=== PATIENT | male | born 1960 | race Caucasian/White ===

== ENCOUNTER 2017-07-28 07:02 | Day surgery (SDC) | payer OTHER ==
[~2017-07-28] VITALS: Ht 180.3 cm; Wt 119.5 kg
[~2017-07-28 07:02] MED LIST: APIX2.5T PO; ATEN-100 PO; DIGO50SO PO; TEMA7.5C9 PO; XANA0.5T PO
[2017-07-28] MEDS ORDERED: IOHEXOL 350 MG/ML 50 ML BTL (for Cath Lab) OTHER ONE (07:03)
[2017-07-28] MEDS ORDERED: IOHEXOL 350 MG/ML 100 ML BTL (for Cath Lab) OTHER ONE (07:03)
[2017-07-28 07:43] VITALS: BP 157/117; PULSE 83; RESP 18; TEMP 98.5; O2SAT 99
[2017-07-28] MEDS ORDERED: MULTTAB67 PO (07:49)
[2017-07-28] MEDS ORDERED: TAZT180C PO (07:49)
[2017-07-28] MEDS ORDERED: FURO1TAB62 PO (07:49)
[2017-07-28] MEDS ORDERED: GUAI1TAB18 (07:49)
[2017-07-28] MEDS ORDERED: TRAM50TA PO (07:49)
[2017-07-28] MEDS ORDERED: TEMA30CA PO (07:49)
[2017-07-28] MEDS ORDERED: ALPR1TAB6 PO (07:49)
[2017-07-28] MEDS ORDERED: DIGO0.25 PO (07:49)
[2017-07-28] MEDS ORDERED: ALBU6.7H INH (07:49)
[2017-07-28] MEDS ORDERED: TAMS0.4C4 PO (07:49)
[2017-07-28] MEDS ORDERED: APIX5TAB PO (07:49)
[2017-07-28] MEDS ORDERED: POTA-163 PO (07:49)
[2017-07-28] MEDS ORDERED: ADVA100A INH (07:49)
[2017-07-28 07:51] LABS: AUTOMATED NEUTROPHIL # 5.5 TH/MM3 (1.8-7.7); BASOPHIL % 0.5 % (0.0-2.0); EOSINOPHIL # 0.1 TH/MM3 (0-0.4); EOSINOPHIL % 1.4 % (0.0-4.0); HEMATOCRIT 46.2 % (39.0-51.0); HEMOGLOBIN 14.8 GM/DL (13.0-17.0); LYMPHOCYTE # 2.3 TH/MM3 (1.0-4.8); MEAN CELL VOLUME 77.5 FL (80.0-100.0); MEAN CORPUSCULAR HEMOGLOBIN 24.7 PG (27.0-34.0); MEAN CORPUSCULAR HGB CONC 31.9 % (32.0-36.0); MEAN PLATELET VOLUME 6.9 FL (7.0-11.0); MONO % 9.6 % (0.0-8.0); MONOCYTE # 0.8 TH/MM3 (0-0.9); NEUT % 62.5 % (16.0-70.0); PLATELET COUNT 229 TH/MM3 (150-450); RED BLOOD COUNT 5.97 MIL/MM3 (4.50-5.90); RED CELL DISTRIBUTION WIDTH 24.9 % (11.6-17.2); WHITE BLOOD COUNT 8.7 TH/MM3 (4.0-11.0)
[2017-07-28 08:06] LABS: INTERNATIONAL NORMALIZED RATIO 1.1 RATIO; PROTHROMBIN TIME - PATIENT 10.7 SEC (9.8-11.6)
[2017-07-28] MEDS ORDERED: NITROGLYCERIN INJ 5 ML ONE (08:25)
[2017-07-28] MEDS ORDERED: HEPARIN SODIUM - IV 10,000 UNITS/10 ML VIAL ONE ×2 (08:25→09:05)
[2017-07-28] MEDS ORDERED: VERAPAMIL HCL 5 MG/2 ML VIAL ONE (08:25)
[2017-07-28] MEDS ORDERED: MIDAZOLAM HCL 2 MG/2 ML VIAL ONE (08:32)
[2017-07-28 08:46] LABS: CREATININE 0.69 MG/DL (0.60-1.30)
[2017-07-28 08:47] LABS: BICARBONATE 26.2 MEQ/L (21.0-32.0); CALCIUM 8.4 MG/DL (8.5-10.1)
[2017-07-28] MEDS ORDERED: NS 1000P @30 MLS/HR (KVO) IV SCH (09:00)
[2017-07-28] MEDS ORDERED: CLOPIDOGREL 300 MG TAB ONE (09:07)
--- NOTE | 2017-07-28 09:54 | CATHPROC ---
[facility] HIS Report Study Information Study Number Admission Scheduled Start Study Start [id number] Jul 28 2017 7:02AM 07/28/2017 Jul 28 2017 8:17AM [place] [facility] Cardiac Catheterization Admit Source Facility Department Other [facility] - Conference Planning Manager Physician and Clinical Staff Initial Cordell Olea Furniture RestorerGamaliel Hayden,SUKHWINDER Furniture Restorersudhakar Mayorga RN, Armando Duval cathlab, cathlab Recorder Minh Stephens RCIS(BS) Scrub Bianca Jason,INSPECTOR MACHINE CUT GLASS TECH2 Procedures Performed Procedure Location (Site) Vessel Name Coronary Angiograms LCA Left Coronary Coronary Angiograms RCA Right Coronary Drug Eluting Inflatio LAD Prox Left Coronary L Heart Cath PTCA LAD Prox Left Coronary PTCA ADD ON'S Wire insertion Radial (right) Radial Art. Equipment Time Carpenter Apprentice Description Size Mfg Part Number Used/Scraped WIRE, BALANCE MIDDLEWEIGHT [id number] 09:06 [employer] 190CM Used 190CM *[id number] TRANSDUCER, TRUWAVE [id number] 08:21 ROMAN MANCILLA * Used W/STOCKCOCK *[id number] 08:21 [employer] PACK, CCL CUSTOM * Used *[id number] 08:21 [employer] SUPPORT, ARTERIAL ADULT 35068 *[id number] Used [id number] 09:15 [employer] BALLOON, 2.5 X 10MM EUPHORA 10MM Used *[id number] BALLOON, 3.75 X 8MM NC [id number] 09:23 [employer] 8MM Used EUPHORA *[id number] BALLOON, 4.0 X 8MM NC [id number] 09:28 [employer] 8MM Used EUPHORA *[id number] 08:52 [employer] JL 3.5 DXTERITY CATHETER FR 5 Used *[id number] 08:59 [employer] JL 4.0 DXTERITY CATHETER FR 5 Used *[id number] 08:45 [employer]ONIC JR 4.0 DXTERITY CATHETER FR 5 [id number] 09:19 [employer] STENT, 3.5 12MM ALICIA 3.5 12MM Used *[id number] 09:05 [employer]/AVE EBU 3.5 Z2 GUIDE CATHETER FR 6 Used *[id number] 09:05 YuMe 30 MARCEL INDEFLATOR Used *[id number] BAND, RADIAL COMPRESSION TR [id number] 09:43 YuMe 29CM Used LARGE 29 *[id number] 08:21 [employer] WIRE, EXCHANGE 260CM 3MMJ 260CM Used *[id number] 08:21 NAMIC MANIFOLD, 4 PORT * Used *[id number] 08:21 [employer]COM[employer] OMNIPAQUE, 350 MG, 150ML 150ML [id number] Used [id number] 08:21 [employer],WARM AIR CCL * Used *[id number] SHEATH, FR6 TRANSRADIAL [id number] 08:21 [employer] FR 6 Used SLENDER 10CM *[id number] Equipment Model, Serial, Lot Number and Expiration Data Description Model Number Serial Number Lot Number Expiration Date BALLOON, 3.75 X 8MM NC [id number] 04-23-2018 EUPHORA BALLOON, 4.0 X 8MM NC EUPHORA [id number] 02-26-2019 STENT, 3.5 12MM ALICIA [id number] 03-14-2019 History: Current Medications Medication Dosage/Unit Route Frequency Last Date/Time Taken ELIQUIS History: Allergies Allergy Reaction No Known Allergies warfarin History: Risk Factors Family History of Hypertension Dyslipidemia Previous [place] Previous Heart Failure Premature CAD Yes No No No No Prior Valve Prior PCI Prior CABG Surgery No No No Cerebrovascular Peripheral Artery Chronic Lung On Dialysis Diabetes Disease Disease Disease No No No Yes No History: Symptoms/Diagnosis Selection Items Chest pain History: Stress Tests Stress or Imaging Studies Performed Yes Standard Exercise Stress Test No Stress Echo No Stress Test SPECT Stress Test SPECT Result Stress Test SPECT Ischemia Risk/Extent Yes Positive Low Stress Test CMR No Cardiac CTA Coronary Calcium Score No No History: Other Disease Selection Items HTN History: Other Current Smoker Method Packs a Day Years Used Pack Years Yes Cigarettes 1 20 20 Labs Hgb (g/dl) Hct (%) WBC (l/cumm) Platelets (thousands) 11.60-17.00 35.00-51.00 4.00-11.00 150.00-450.00 14.8 46.2 8.7 229 Creatinine (mg/dl) 0.50-1.30 0.6 Na (meq/l) K (meq/l) 136.00-145.00 3.50-5.10 140 3.8 INR (PTT:PT) 0.90-1.10 1.1 CPK-MB (ng/ML) 0.50-3.60 Not Drawn Medication Medication Total Dose (Bolus/Oral) Medication Total Dosage/Unit 1% XYLOCAINE 3 mL FENTANYL 50 mcg HEPARIN 8400 units PLAVIX 600 mg RADIAL COCKTAIL 5 mL (Bolus) VERSED 1 mg Medications (Bolus/Oral) Medication Time Given Dosage/Unit Administered By Reason FENTANYL 07/28/2017 8:41:48 AM 50 mcg Armando Mayorga RN 50 mcg FENTANYL given in lab by Armando Mayorga RN in Left Antecubital via Peripheral IV. Ordered by Cordell Bonilla 1% XYLOCAINE 07/28/2017 8:42:01 AM 3 mL Cordell Rivera 3 mL 1% XYLOCAINE given in lab by Cordell Rivera in Right Radial via Subcutaneous. Ntg 200mcg Verapamil 2.5mg Heparin RADIAL COCKTAIL 07/28/2017 8:43:54 AM 5 mL (Bolus) Cordell Rivera 3000U 5 mL (Bolus) RADIAL COCKTAIL given in lab by Cordell Rivera via Radial. Using [Solution Name]. R aggie: Ntg 200mcg Verapamil 2.5mg Heparin 4800U VERSED 07/28/2017 8:49:00 AM 0.5 mg Armando Mayorga RN 0.5 mg VERSED given in lab by Armando Mayorga RN in Left Antecubital via Peripheral IV. Ordered by Cordell Morrow VERSED 07/28/2017 9:03:24 AM 0.5 mg Armando Mayorga RN 0.5 mg VERSED given in lab by Armando Mayorga RN in Left Antecubital via Peripheral IV. Ordered by Cordell Morrow HEPARIN 07/28/2017 9:06:48 AM 8400 units Armando Mayorga RN 8400 units HEPARIN given in lab by Armando Mayorga RN via Peripheral IV. Ordered by Cordell Rivera PLAVIX 07/28/2017 9:44:10 AM 600 mg Armando Mayorga RN 600 mg PLAVIX given in lab by Armando Mayorga RN via Oral. Ordered by Cordell Rivera Medication (Drip) Medication Time Given Dosage/Unit Concentration/Unit Diluent (ml) Solutio n IV Solutions 07/28/2017 8:17:28 AM 0 mL (IV) 500 NaCl .9 Patient arrived on IV Solutions given by cathlab, cathlab in Left Antecubital via Peripheral IV. Pump /Drip Flow = 20 ml/hr using NaCl .9. Ordered by Cordell Rivera Initial Case Assessment Cardiovascular HR Rhythm NIBP Chest Pain 74 nsr 136/87 0 Edema Present Skin color Skin None Normal Warm Dry Circulatory - Right Pulses Dorsalis Pedis Femoral Radial 2 2 2 Scale (0,1,2,3,4,d) Circulatory - Left Pulses Dorsalis Pedis Femoral Radial 2 2 Scale (0,1,2,3,4,d) Neurological State Oriented to time-place- Alert Moves all extremities person Respiration - General Respiration Rate SpO2 (%) (B/min) 15 96 Final Case Assessment Cardiovascular HR Rhythm NIBP Chest Pain 73 nsr 155/103 0 Edema Present Skin color Skin None Normal Warm Dry Circulatory - Right Pulses Dorsalis Pedis Femoral Radial 2 2 2 Scale (0,1,2,3,4,d) Circulatory - Left Pulses Dorsalis Pedis Femoral Radial 2 2 Scale (0,1,2,3,4,d) Neurological State Oriented to time-place- Alert Moves all extremities person Respiration - General Respiration Rate SpO2 (%) (B/min) 15 96 Chronological Log Time Study Chronological Log 8:17:17 Patient arrived via Bed. Chemistry labs pending. MD aware. 8:17:18 Patient Name, D.O.B, / Armband Verified By R.N. 8:17:19 Consent signed by the physician and the patient and verified by the Conference Planning Manager staff. 8:17:19 Pre-op and post- op instructions given; patient acknowledges understanding of instructions. 8:17:20 Verbal Stimulation=2 Physical Stimulation=2 Airway=2 Respiration=2 TOTAL=8. (0=absent, 1=li mited, 2=present) 8:17:20 Presedation assessment performed by Conference Planning Manager RN. 8:17:21 Allens test performed on the right radial and ulnar artery. 8:17:22 Immediate Presedation assesment performed by physician. 8:17:23 Patient has been NPO for More than 6Hrs. 8:17:24 Skin Breakdown- none per patient 8:17:25 Patient Warmer Placed on the Table. 8:17:26 Mert Prominences Protected 8:17:27 A # 20 IV was noted in the Antecubital (left). Grade = 0 Patient arrived on IV Solutions given by cathlabmarisa in Left Antecubital via Peripheral IV . Pump/Drip Flow = 20 8:17:28 ml/hr using NaCl .9. Ordered by Cordell Rivera 8:17:28 History and physical on the chart or being dictated. Vitals capture started with the following parameters, Patient=Adult, Interval=5 min, Initial Pr kitpoh=960 mmHg, 8:27:27 Deflation Rate=5 mmHg, Cuff placed on Left Arm 8:28:34 HR=69 bpm, SZDB=654/87 mmhg, SpO2=95.0 %, Resp=12 B/min, Pain=0, Will=10, Stack=2 Assessment: Initial Case, HR=74 BPM, Rhythm=nsr, HIKM=691/87 mmhg, Chest Pain=0, Edema=None, Col or=Normal, Skin = Warm, Dry Right Pulses: Radames Ped=2, Femoral=2, Radial=2 8:28:50 Left Pulses: Radames Ped=2, Femoral=2 Neurological: State=Alert, Ox3, STUART Respiration: Resp=15 B/min, SpO2=96 % 8:29:18 Right Radial and groin(s) prepped with 2% chlorhexidine, and draped after a 3 min. waiting t escobar. 8:29:23 MD arrived. 8:32:55 Contrast Scanned 8:32:55 Immediate Presedation assesment performed by physician. 8:32:58 HR=82 bpm, HTVT=840/86 mmhg, SpO2=94.0 %, Resp=15 B/min, Pain=0, Will=10, Stack=2 8:34:52 Reference ECG taken 8:35:41 Pressure channel 1 zeroed. Time Out. Correct patient, correct procedure, correct physician, power injector not loaded with contrast with surgical 8:37:37 team present. Time Out Concurred by MD and individual staff in procedure. 8:38:01 HR=74 bpm, QBPA=430/89 mmhg, SpO2=92.0 %, Resp=16 B/min, Pain=0, Will=10, Stack=2 8:41:44 Case Start 8:41:48 50 mcg FENTANYL given in lab by Armando Mayorga RN in Left Antecubital via Peripheral IV. Order ed by Rivera, Vincent G. 8:42:01 3 mL 1% XYLOCAINE given in lab by Cordell Rivera in Right Radial via Subcutaneous. 8:43:00 HR=68 bpm, ARWS=055/88 mmhg, SpO2=96.0 %, Resp=17 B/min, Pain=0, Will=10, Stack=2 8:43:37 Access site was Right Radial Artery. A SHEATH, FR6 TRANSRADIAL SLENDER 10CM FR 6 was advanced into the Radial (right) using the Jad patel 8:43:44 technique. 5 mL (Bolus) RADIAL COCKTAIL given in lab by Cordell Rivera via Radial. Using [Solution Nam e]. Reason: Ntg 8:43:54 200mcg Verapamil 2.5mg Heparin 4800U A JR 4.0 DXTERITY CATHETER FR 5 was advanced over a wire. OMNIPAQUE, 350 MG, 150ML 150ML was use d for 8:44:25 injections. Recorded Pressure: Ao, HR=68, Condition=Condition 1 8:47:53 (Aorta) Ao 98/64/80 8:48:01 HR=74 bpm, VUAL=601/79 mmhg, SpO2=93.0 %, Resp=12 B/min 8:49:00 0.5 mg VERSED given in lab by Armando Mayorga RN in Left Antecubital via Peripheral IV. Ordered by Cordell Rivera. 8:49:49 The RCA was injected and visualized at various angles. OMNIPAQUE, 350 MG, 150ML 150ML used. Recorded Pressure: LV, HR=76, Condition=Condition 1 8:52:31 (Left Ventricle) LV 126/4/12 Recorded Pressure: LV, Ao, HR=73, Condition=Condition 1 8:52:38 (Left Ventricle) LV 133/4/12, (Aorta) Ao 124/69/92 After removing the current catheter a JL 3.5 DXTERITY CATHETER FR 5 was advanced over a WIRE, EX CHANGE 260CM 8:52:46 3MMJ 260CM. 8:53:02 HR=99 bpm, JCCO=592/82 mmhg, SpO2=95 %, Resp=14 B/min, Pain=0, Will=10, Stack=2 8:58:01 HR=74 bpm, VNHE=300/92 mmhg, SpO2=95 %, Resp=11 B/min, Pain=0, Will=10, Stack=2 After removing the current catheter a JL 4.0 DXTERITY CATHETER FR 5 was advanced over a WIRE, EX CHANGE 260CM 8:58:28 3MMJ 260CM. 9:00:02 The LCA was injected and visualized at various angles. OMNIPAQUE, 350 MG, 150ML 150ML used. 9:03:03 HR=80 bpm, AACV=487/97 mmhg, SpO2=91.0 %, Resp=15 B/min, Pain=0, Will=10, Stack=2 9:03:24 0.5 mg VERSED given in lab by Armando Mayorga RN in Left Antecubital via Peripheral IV. Ordered by Cordell Rivera 9:04:28 contrast and 30 MARCEL INDEFLATOR added. After removing the current catheter a EBU 3.5 Z2 GUIDE CATHETER FR 6 was advanced over a WIRE, E XCHANGE 9:05:01 260CM 3MMJ 260CM. 9:06:48 8400 units HEPARIN given in lab by Armando Mayorga RN via Peripheral IV. Ordered by Lamberto Rivera 9:08:00 HR=82 bpm, FURJ=833/92 mmhg, SpO2=93.0 %, Resp=10 B/min, Pain=0, Will=10, Stack=2 9:12:36 A WIRE, BALANCE MIDDLEWEIGHT 190CM 190CM was inserted via Radial (right). 9:12:42 Interventional wire has crossed the lesion 9:13:03 HR=79 bpm, YRDW=967/93 mmhg, SpO2=92.0 %, Resp=16 B/min, Pain=0, Will=10, Stack=2 A BALLOON, 2.5 X 10MM EUPHORA 10MM was inserted over WIRE, BALANCE MIDDLEWEIGHT 190CM 190CM via the 9:15:09 LAD Prox. 9:17:02 Activated Clotting Time Drawn A BALLOON, 2.5 X 10MM EUPHORA 10MM over a WIRE, BALANCE MIDDLEWEIGHT 190CM 190CM in the LAD Prox was 9:17:02 inflated using a 30 MARCEL INDEFLATOR at 8 marcel for 25 sec. 9:18:00 Balloon Removed. 9:18:06 HR=79 bpm, TURT=198/91 mmhg, SpO2=93.0 %, Resp=15 B/min, Pain=0, Will=10, Stack=2 A STENT, 3.5 12MM ALICIA 3.5 12MM was advanced through a EBU 3.5 Z2 GUIDE CATHETER FR 6 over a WIR E, 9:18:10 BALANCE MIDDLEWEIGHT 190CM 190CM. 9:20:23 ACT (Normal Range 90-180) = 291 A STENT, 3.5 12MM ALICIA 3.5 12MM was deployed using a 30 MARCEL INDEFLATOR at 14 atmospheres for 30 seconds in 9:21:00 the LAD Prox. 9:21:58 Delivery device removed A BALLOON, 3.75 X 8MM NC EUPHORA 8MM was inserted over WIRE, BALANCE MIDDLEWEIGHT 190CM 190CM vi a the 9:22:17 LAD Prox. 9:23:07 HR=77 bpm, PCNB=962/106 mmhg, SpO2=93.0 %, Resp=14 B/min, Pain=0, Will=10, Stack=2 A BALLOON, 3.75 X 8MM NC EUPHORA 8MM over a WIRE, BALANCE MIDDLEWEIGHT 190CM 190CM in the LAD Pr ox 9:24:43 was inflated using a 30 MARCEL INDEFLATOR at 22 marcel for 25 sec. A BALLOON, 3.75 X 8MM NC EUPHORA 8MM over a WIRE, BALANCE MIDDLEWEIGHT 190CM 190CM in the LAD Pr ox 9:26:06 was inflated using a 30 MARCEL INDEFLATOR at 22 marcel for 25 sec. A BALLOON, 3.75 X 8MM NC EUPHORA 8MM over a WIRE, BALANCE MIDDLEWEIGHT 190CM 190CM in the LAD Pr ox 9:26:20 was inflated using a 30 MARCEL INDEFLATOR at 22 marcel for 20 sec. 9::48 Balloon Removed. 9:28:06 HR=70 bpm, ESOC=345/99 mmhg, SpO2=93.0 %, Resp=10 B/min, Pain=0, Will=10, Stack=2 A BALLOON, 4.0 X 8MM NC EUPHORA 8MM was inserted over WIRE, BALANCE MIDDLEWEIGHT 190CM 190CM via the 9:28:16 LAD Prox. A BALLOON, 4.0 X 8MM NC EUPHORA 8MM over a WIRE, BALANCE MIDDLEWEIGHT 190CM 190CM in the LAD Pro x was 9:29:36 inflated using a 30 MARCEL INDEFLATOR at 18 marcel for 15 sec. 9:30:47 Balloon Removed. 9:33:07 HR=87 bpm, CYJN=854/102 mmhg, SpO2=91.0 %, Resp=15 B/min, Pain=0, Will=10, Stack=2 A BALLOON, 4.0 X 8MM NC EUPHORA 8MM was inserted over WIRE, BALANCE MIDDLEWEIGHT 190CM 190CM via the 9:36:01 LAD Prox. 9:38:08 HR=79 bpm, LEXD=298/105 mmhg, SpO2=93.0 %, Resp=16 B/min, Pain=0, Will=10, Stack=2 A BALLOON, 4.0 X 8MM NC EUPHORA 8MM over a WIRE, BALANCE MIDDLEWEIGHT 190CM 190CM in the LAD Pro x was 9:38:29 inflated using a 30 MARCEL INDEFLATOR at 18 marcel for 15 sec. A BALLOON, 4.0 X 8MM NC EUPHORA 8MM over a WIRE, BALANCE MIDDLEWEIGHT 190CM 190CM in the LAD Pro x was 9:39:06 inflated using a 30 MARCEL INDEFLATOR at 20 marcel for 15 sec. 9:40:39 Balloon Removed. 9:41:00 Wire removed 9:42:22 Catheter was removed Radial Compression Device Used. 9 mLs of air placed in BAND, RADIAL COMPRESSION TR LARGE 29 29CM . Affected 9:42:26 hand 95 % O2 saturation. 9:43:07 HR=77 bpm, GVKY=046/103 mmhg, SpO2=96.0 %, Resp=12 B/min, Pain=0, Will=10, Stack=2 9:43:37 Case End Assessment: Final Case, HR=73 BPM, Rhythm=nsr, CXFM=352/103 mmhg, Chest Pain=0, Edema=None, [place]=Normal, Skin = Warm, Dry Right Pulses: Radames Ped=2, Femoral=2, Radial=2 9:43:40 Left Pulses: Radames Ped=2, Femoral=2 Neurological: State=Alert, Ox3, STUART Respiration: Resp=15 B/min, SpO2=96 % 9:43:53 Catheter(s) removed without difficulty 9:43:54 Sterile dressing applied to site 9:43:55 No case complications noted. 9:43:56 Cine recording checked. 9:43:57 Bedside Report will be given. 9:43:58 Implantable Device card placed in patient's chart. 9:43:59 Contrast Scanned 9:44:00 Verbal Stimulation=2 Physical Stimulation=2 Airway=2 Respiration=2 TOTAL=8. (0=absent, 1=l imited, 2=present) 9:44:06 A Left Heart Cath was performed. 9:44:10 600 mg PLAVIX given in lab by Armando Mayorga RN via Oral. Ordered by Cordell Rivera 9:47:38 Vitals capture stopped. 9:47:54 Patient moved to [facility] End Study - Contrast Media Used In Study Contrast Total Opened (mL) Total Used (mL) Total Wasted (mL) Omnipaque 150 150 0 End Study - Maximum Contrast Load Max Contrast Load (mL) 995.8 End Study - Radiation Exposure Fluoro Time (minutes) 15.3 End Study - Patient Disposition Complications Transferred To Interventional Outcome No Conference Planning Manager Holding successful
[2017-07-28] MEDS ORDERED: oxyCODONE/ACETAMINOPHEN 10 MG/325 MG TAB PO PRN (10:15)
[2017-07-28] MEDS ORDERED: oxyCODONE/ACETAMINOPHEN 5 MG/325 MG TAB PO PRN (10:15)
[2017-07-28] MEDS ORDERED: MISC INFORMATION XX ONE (10:15)
[2017-07-28] MEDS ORDERED: SODIUM CHLOR 0.9% 1000 ML INJ 1,000 ML IV SCH (10:15)
[2017-07-28] MEDS ORDERED: ACETAMINOPHEN 325 MG TAB PO PRN (10:15)
[2017-07-28] MEDS ORDERED: PLAV75TA29 PO (10:18)
--- NOTE | 2017-07-28 13:13 | MA ---
cc: CORDELL OSBORNE DO DATE 07/28/2017 PROCEDURE Left heart catheterization, coronary angiogram, moderate sedation 60 minutes, andry drug-eluting stent (3.5 x 12) to the proximal LAD. PREPROCEDURE DIAGNOSIS Unstable angina, Van Zandt anginal score 3 (patient currently on calcium channel rudy for atrial fibrillation, unable to tolerate beta rudy secondary to erectile dysfunction). POSTPROCEDURE DIAGNOSIS 1. Unstable angina status post andry drug-eluting stent (3.5 x 12) to the proximal LAD. 2. Residual moderate to severe RCA disease. MEDICATION Versed 1 mg, fentanyl 50 mcg, heparin 13,200 units, nitro 200 mcg, verapamil 2.5 mg, Plavix 600 mg. CONTRAST USED 150 cc. FLUOROSCOPY 15 minutes. SEDATION Moderate sedation, 60 minutes. ESTIMATED BLOOD LOSS 10 cc. PROCEDURAL SUMMARY James Collins is a pleasant 57-year-old male who sees my partner, Dr. Cochran, in the office. The patient previously underwent a stress test which showed no ischemia. He continued to have chest pain during activity that would go away with rest and also nitroglycerin which was concerning for unstable angina. Because of this he was recommended cardiac catheterization. Risks, benefits and alternatives were explained to him and he consented as such. He is brought to the lab and prepped in the usual sterile fashion. The right radial artery was accessed using a modified Seldinger technique and placement of a 5/6 Syriac sheath. This was easily aspirated and flushed. A JR4 was advanced over a J-wire to the ascending aorta and across the aortic valve for measurement of left ventricular pressure. This was pulled back across the aortic valve showing no significant gradient of aortic stenosis. The JR4 was used for selective angiography of the right coronary artery system. This was exchanged out for a JL 3.5 and eventually a JL4 for selective angiography of the left coronary artery system. Because of the significance of disease in the proximal LAD it was felt that this should be intervened on. Please see notes below for intervention. FINDINGS Left Main: Normal size vessel with adequate reflux and no significant disease. It bifurcates into an LAD and circumflex. LAD: Proximal 95% stenosis. The mid-distal LAD has mild luminal irregularities. It gives off one diagonal with 10% disease. Left Circumflex: Normal size vessel which gives off one major obtuse marginal and no significant disease throughout the system. RCA: High anterior takeoff. It is a dominant vessel by nature. There is a long tubular 60-70% lesion throughout the mid-distal portion. Otherwise no significant disease. LVEDP 12. INTERVENTION Because of the significance of disease in the proximal LAD it was felt that this needed to be intervened on. An EBU 3.5 guide was then advanced and engaged into the left main. A BMW wire was advanced into the distal LAD. A compliant balloon (2.5 x 10) was then used to pre-dilate the lesion. A [place] drug-eluting stent (3.5 x 12) was then placed across the lesion and inflated. This was then postdilated with a 3.75 and eventually a 4.0 balloon. The wire was removed. Final angiogram shows a well-apposed stent with no perforations or dissections. The guide was removed over a J-wire. A radial band was placed over the arteriotomy site for hemostasis. The patient left the quality lab assoc cardiovascularly stable. IMPRESSION 1. Unstable angina, Van Zandt anginal score 3 (on calcium channel rudy, unable to tolerate beta rudy secondary to erectile dysfunction). 2. Coronary artery disease status post Andry drug-eluting stent (3.5 x 12) to the proximal LAD; residual moderate to severe RCA disease. 3. Atrial fibrillation. 4. Tobacco abuse. RECOMMENDATIONS 1. Mr. Collins had unstable angina and this is most likely due to his proximal LAD. This was stented with a drug-eluting stent and he will be placed on Plavix therapy to go along with his Eliquis. This was discussed with him as this is an off-label use but he understands as he has had significant trouble with Coumadin in the past. 2. He should be on Plavix for at least 12 months. 3. As far as his RCA disease, will attempt to treat this medically as best as possible and if he continues to have symptoms will discuss with him at that time further intervention of his RCA. 4. He will be watched for six hours post procedure and if stable discharged home today. Thank you for allowing me to see James Collins. If there are any questions, please do not hesitate to call. Cordell Osborne DO VGP/BT /11:53 AM /12:58 PM SANCHEZ
[2017-07-28] MEDS ORDERED: hydrALAZINE HCL 20 MG/ML VIAL IV PUSH PRN (14:30)
--- NOTE | 2017-07-28 19:33 | EKG ---
Date Performed: 07/28/2017 Time Performed: 07:52:22 PTAGE: 57 years EKG: Atrial fibrillation. Rightward axis Abnormal ECG PREVIOUS TRACING : 04/14/2015 12.53 Since previous tracing, no significant change noted DOCTOR: Tejal Nichols Interpretating Date/Time 07/28/2017 19:32:20
== END 2017-07-28 16:46 | disposition home or self-care (01) ==
LOC: HDOC 07:02 → HDIC 07:02 → HDOC 16:46
PROVIDERS: ATTEND Nuclear Medicine Nuclear Cardiology
DX: I25.110 Atherosclerotic heart disease of native coronary artery with unstable angina pectoris (principal); I48.91 Unspecified atrial fibrillation; N52.9 Male erectile dysfunction, unspecified; I10 Essential (primary) hypertension; E78.5 Hyperlipidemia, unspecified; F17.200 Nicotine dependence, unspecified, uncomplicated; Z01.818 Encounter for other preprocedural examination
CPT/HCPCS: 80048; 85002; 85025; 85610; 85730; 92928; 93005; 93458; 99152; 99153; C1725; C1769; C1874; C1887; C1893; J0360; J1644; J2250; J3010; Q9967